=== PATIENT | male | born 1955 | race Caucasian/White ===

== ENCOUNTER 2019-08-18 22:48 | Inpatient (IN) | payer BC ==
[~2019-08-18] VITALS: Ht 182.9 cm; Wt 112.3 kg
[2019-08-18 23:21] LABS: BASO % 0.4 % (0.0-2.0); EOS # 0.2 (0.0-0.7); EOS % 1.6 % (0-4.0); GRAN # 6.6 (1.4-6.5); GRAN % 66.8 % (42.2-75.2); LYMPH # 1.8 (1.2-3.4); LYMPH % 17.7 % (20.0-51.0); MEAN CELL VOLUME 90 fl (80.0-100.0); MEAN CORPUSCULAR HEMOGLOBIN 30 pg (27.0-31.0); MEAN CORPUSCULAR HGB CONC 33 g/dl (33.0-37.0); MEAN PLATELET VOLUME 10.1 fl (7.4-10.4); MONO # 1.3 (0.1-0.6); MONO % 13.2 % (1.7-9.3); PLATELET COUNT 289 K/mm3 (130-400); RED BLOOD COUNT 5.02 M/mm3 (4.20-5.60); REDCELL DISTRIBUTION WIDTH-CV 12.7 % (11.5-14.5)
[2019-08-18 23:32] LABS: ALBUMIN 4.1 gm/dL (3.5-5.0); BILIRUBIN,TOTAL 0.4 mg/dL (0.0-1.0); C-REACTIVE PROTEIN 0.8 mg/dL (0.0-0.9); CREATININE, serum 0.98 (0.66-1.25); POTASSIUM 3.8 mmol/L (3.4-5.0); TOTAL PROTEIN 7.6 gm/dL (6.4-8.2)
[2019-08-18] MEDS ORDERED: ASPIRIN 81M81 MG/TA2 PO (23:42)
[2019-08-18 23:43] LABS: TROPONIN-I 0.084 ng/mL (0.000-0.035)
[2019-08-19] VITALS (855 sets, daily range): BP systolic 93–144; BP diastolic 69–95; PULSE 24–91; TEMP 97.7–98.4; O2SAT 67–100
[2019-08-19 00:49] LABS: COLLECTION METHOD CLEAN CATCH
[2019-08-19 00:54] LABS: PH 6 (5-8); SQUAMOUS EPITHELIAL None Seen /hpf; URINE APPEARANCE Clear; URINE BACTERIA None Seen /hpf; URINE BILIRUBIN Negative (NEGATIVE); URINE BLOOD Negative (NEGATIVE); URINE COLOR Yellow; URINE GLUCOSE Negative (NEGATIVE); URINE KETONE Negative (NEGATIVE); URINE LEUKOCYTE ESTERASE Negative (NEGATIVE); URINE NITRATE Negative (NEGATIVE); URINE PROTEIN(semi-quant) Negative (NEGATIVE); URINE RBC 0-2 /hpf; URINE UROBILINOGEN Negative (NEGATIVE)
[2019-08-19 01:44] LABS: PROTHROMBIN TIME 11.6 SECONDS (9.7-12.8)
[2019-08-19 01:47] LABS: PARTIAL THROMBOPLASTIN TIME 28.3 SECONDS (26.0-37.0)
[2019-08-19] MEDS ORDERED: CARAFATE 1GM1 G PO (02:21)
[2019-08-19] MEDS ORDERED: PROTONIX 40MG T40 MG PO (02:22)
--- NOTE | 2019-08-19 03:37 | NUR ---
0143 - REPORT RECEIVED FROM AUTUMN HASSAN. 0203 - PT ARIVED IN UNIT, ABLE TO TRANSFER SELF TO BED INDEPENDENTLY, ALERT AND ORIENTED, DENIES ANY PAIN OR SOB AND VS WNL. PT ORIENTED TO ROOM AND CALL LIGHT WITHIN REACH. PT'S DAUGHTER AT BEDSIDE, AND MEDICATION SENT HOME WITH DAUGHTER. 0330 - TROPONIN ELEVATED AT 0.881, KATARINA GONZALES AND DR. RAYMOND BOTH NOTIFIED. NO NEW ORDERS GIVEN AT THIS TIME EXCEPT TO KEEP PT NPO. WILL CONTINUE TO MONITOR.
--- NOTE | 2019-08-19 05:07 | NUR ---
BP AT 93/69, PARAMETERS IS TO KEEP SBP >100 PER KATARINA PERES. NITROGLYCERINE DISCONTINUED AT THIS TIME.
--- NOTE | 2019-08-19 07:10 | NUR ---
Bedside report recieved from Daniela LEYVA. Medications verified. NTG restarted at this time, SBP 126. Patient denies complaints of chest pain, denies needs at this time as well.
[2019-08-19 07:37] LABS: CHOLESTEROL RISK RATIO 6.5; MAGNESIUM 2.1 mg/dL (1.6-2.3)
[2019-08-19 07:57] LABS: TROPONIN-I 6 HR POST INITIAL 1.27 ng/mL (0.000-0.034)
--- NOTE | 2019-08-19 10:50 | NUR ---
To [facility] with RNx2 via bed. Report given to Norma LEYVA
--- NOTE | 2019-08-19 11:28 | NUR ---
SEE RUSSELL FOR ALL MEDICATION ADMINISTRATION TIMES AND INTRA AND POST SEDATION ASSESSSMENT
--- NOTE | 2019-08-19 11:54 | NUR ---
MARYELLEN azevedo attended clinical rounds with the team. The patient is to have a heart cath this day. After rounds MARYELLEN azevedo met with the patient to discuss a discharge plan. The patient lives alone in [place]. The patient does not use DME and reports independence ADLs. The patient does not have advanced directives in the EMR and was not interested in a DPOA-HC form. The patient has a daughter in [place], Camila and a son in [place], [place]. The patient plans to return home upon discharge with Camila providing transportation. There are no additional needs at this time.
--- NOTE | 2019-08-19 12:20 | NUR ---
Report received from Norma LEYVA in CCL. Will await patient's arrival to unit.
--- NOTE | 2019-08-19 12:55 | NUR ---
RECEIVED BEDSIDE REPORT FROM ANNE LEYVA FROM NURSING SURGICAL SERVICES DIRECTOR. PT RESTING COMFORTABLY IN BED. DENIES PAIN. GROIN SITE CDI WITH NO S/S OF HEMATOMA.
--- NOTE | 2019-08-19 19:13 | NUR ---
Bedside report given to Daniela LEYVA. Drips verified and Right femerol cath site assessed with on coming nurse. Patient denies needs, visits with family at bedside.
--- NOTE | 2019-08-19 19:41 | NUR ---
PT'S RIGHT FEMORAL SITE WITH DRESSING, CLEAN DRY AND INTACT. NO BLEEDING OR HEMATOMA NOTED. SITE SOFT TO PALPATE. PULSES INTACT AND STRONG.
[2019-08-20] VITALS (437 sets, daily range): BP systolic 102–117; BP diastolic 75–79; PULSE 50–80; TEMP 97.5–98; O2SAT 75–100
[2019-08-20 06:17] LABS: BASO % 0.3 % (0.0-2.0); EOS # 0.2 (0.0-0.7); EOS % 2.3 % (0-4.0); GRAN # 6.8 (1.4-6.5); GRAN % 66.7 % (42.2-75.2); HEMATOCRIT 44.7 % (42.0-52.0); HEMOGLOBIN 14.9 g/dl (13.5-18.0); LYMPH # 1.8 (1.2-3.4); LYMPH % 17.5 % (20.0-51.0); MEAN CELL VOLUME 90 fl (80.0-100.0); MEAN CORPUSCULAR HEMOGLOBIN 30 pg (27.0-31.0); MEAN CORPUSCULAR HGB CONC 33 g/dl (33.0-37.0); MEAN PLATELET VOLUME 10.1 fl (7.4-10.4); MONO # 1.3 (0.1-0.6); MONO % 12.9 % (1.7-9.3); PLATELET COUNT 272 K/mm3 (130-400); RED BLOOD COUNT 4.99 M/mm3 (4.20-5.60); REDCELL DISTRIBUTION WIDTH-CV 12.8 % (11.5-14.5)
[2019-08-20 06:28] LABS: CALCIUM 9.1 mg/dL (8.4-10.2); CREATININE, serum 0.79 (0.66-1.25); POTASSIUM 4.1 mmol/L (3.4-5.0)
--- NOTE | 2019-08-20 07:26 | NUR ---
REPORT GIVEN TO AUTUMN MOROCHO.
--- NOTE | 2019-08-20 08:02 | NUR ---
CLARIFIED WITH DR MARI MA REGARDING DC NITRO DRIP AT 0800. WILL STOP AT 0800. PT DENIES ANY CP OR SOB. PT INTSTRUCTED TO CALL WITH ANY CP, SOB, PALPATATIONS, DIZZINES, OR PAIN.
[2019-08-20] MEDS ORDERED: LOPRESSOR 550 MG/TAB PO (11:05)
[2019-08-20] MEDS ORDERED: BRILINTA90 MG PO (11:05)
[2019-08-20] MEDS ORDERED: LIPITOR 80MG80 MG PO (11:05)
[2019-08-20] MEDS ORDERED: COZAAR 50MG50 MG/TAB PO (11:06)
--- NOTE | 2019-08-20 13:15 | NUR ---
DISCHARGE INSTRUCTIONS DISCUSSSED WITH PT. ALL QUESITONS ANSWERED. IV AND TELE DC'D. 1330: PT WHEELED OUT FOR DISCHARGE. PT HAS ALL PAPERWORK AND BELONGINGS.
== END 2019-08-20 13:31 | disposition home or self-care (01) | DRG 247 ==
LOC: COL.ER 22:48 → ICU 08-19 01:28
PROVIDERS: Emergency Medicine; ADMIT Student in an Organized Health Care Education/Training Program
PROC: 027034Z Dilation of Coronary Artery, One Artery with Drug-eluting Intraluminal Device, Percutaneous Approach (ICD-10-PCS; principal; 2019-08-19)
PROC: 4A023N8 Measurement of Cardiac Sampling and Pressure, Bilateral, Percutaneous Approach (ICD-10-PCS; 2019-08-19)
PROC: B2111ZZ Fluoroscopy of Multiple Coronary Arteries using Low Osmolar Contrast (ICD-10-PCS; 2019-08-19)
DX: I21.4 Non-ST elevation (NSTEMI) myocardial infarction (principal); I10 Essential (primary) hypertension; K21.9 Gastro-esophageal reflux disease without esophagitis; E66.9 Obesity, unspecified; Z79.82 Long term (current) use of aspirin; Z68.33 Body mass index [BMI] 33.0-33.9, adult
CPT/HCPCS: 99223-AI; C9600; J1644; J2250; J3010; J7030; Q9967